=== PATIENT | female | born 1990 | race Hispanic/Latino ===

== ENCOUNTER 2017-09-13 15:55 | Inpatient (IN) | payer MEDICAID ==
[2017-09-13 17:13] LABS: SQUAMOUS EPITHIAL 23 /hpf (0-5); URINE BACTERIA OCC (<OCC); URINE BILIRUBIN NEGATIVE (NEGATIVE); URINE BLOOD NEGATIVE (NEGATIVE); URINE CALCIUM OXALATE CRYSTALS OCC /hpf (<OCC); URINE CLARITY Hazy (Clear); URINE GLUCOSE (UA) NORMAL (Normal); URINE LEUKOCYTE ESTERASE NEG Leu/uL (Negative); URINE NITRATE NEGATIVE (NEGATIVE); URINE PROTEIN 1+ mg/dL (NEGATIVE)
[2017-09-13 17:14] LABS: URINE COLOR YELLOW (YELLOW)
[2017-09-13 17:21] LABS: BENZODIAZEPINES, UR NEGATIVE (NEGATIVE); PHENCYCLIDINE, UR NEGATIVE (NEGATIVE)
[2017-09-13 17:28] LABS: BASO % 0.5 % (0.0-2.0); EOS % 0.4 % (0.0-4.0); HEMOGLOBIN 12.6 g/dL (11.0-16.0); LYMPH # 2.7 K/uL (1.0-4.3); LYMPH % 27.9 % (20.0-40.0); MEAN CELL VOLUME 85.9 fL (81.0-99.0); MEAN CORPUSCULAR HGB CONC 34.9 g/dL (33.0-37.0); MEAN PLATELET VOLUME 8.1 fL (7.2-11.7); MONO # 1.1 K/uL (0.0-0.8); MONO % 11.7 % (0.0-10.0); NEUT # 5.8 K/uL (1.8-7.0); NEUT % 59.5 % (50.0-75.0); RBC 4.21 Mil/uL (3.80-5.20); RED CELL DISTRIBUTION WIDTH 12.8 % (11.5-14.5); WHITE BLOOD COUNT 9.8 K/uL (4.8-10.8)
[2017-09-13 17:28] LABS: BARBITURATES, UR POSITIVE (NEGATIVE); OPIATES, UR POSITIVE (NEGATIVE)
--- NOTE | 2017-09-13 17:38 | C.PDOC ---
History Of Present Illness 26 y/o female presents to ED requesting IV heroin and ETOH detox. Patient state she found out she was 4 days ago. Denies abdominal pain, vaginal bleeding, back pain, n/v or any other complaints at this time. Last use this morning at 5 am. LMP 07/2017 Time Seen by Provider: 09/13/17 16:41 Chief Complaint (Nursing): Substance Abuse History Per: Patient History/Exam Limitations: no limitations Onset/Duration Of Symptoms: Days Current Symptoms Are (Timing): Still Present Suicide/Self Injury Attempted (Context): None Modifying Factor(s): Alcohol Past Medical History Reviewed: Historical Data, Nursing Documentation, Vital Signs Vital Signs: Last Vital Signs Temp 98.3 F 09/13/17 16:02 Pulse 93 H 09/13/17 16:02 Resp 18 09/13/17 16:02 BP 107/78 09/13/17 16:02 Pulse Ox 98 09/13/17 19:01 - Medical History PMH: No Chronic Diseases Surgical History: No Surg Hx Family History: States: No Known Family Hx - Social History Hx Alcohol Use: Yes Hx Substance Use: Yes (heroin) - Immunization History Hx Tetanus Toxoid Vaccination: No Hx Influenza Vaccination: No Hx Pneumococcal Vaccination: No Review Of Systems Constitutional: Negative for: Fever, Chills Gastrointestinal: Negative for: Vomiting, Abdominal Pain Genitourinary: Negative for: Vaginal Bleeding Musculoskeletal: Negative for: Back Pain Skin: Negative for: Rash Physical Exam - Physical Exam Appears: Non-toxic, No Acute Distress Skin: Warm, Dry, No Rash, Other ((+) b/l track moore) Head: Atraumatic, Normacephalic Eye(s): bilateral: Normal Inspection, EOMI Nose: Normal Oral Mucosa: Moist Neck: Normal ROM, Supple Chest: Symmetrical Cardiovascular: Rhythm Regular Respiratory: Normal Breath Sounds, No Accessory Muscle Use, No Rales, No Rhonchi , No Wheezing Gastrointestinal/Abdominal: Soft, No Tenderness, No Guarding, No Rebound Extremity: Normal ROM, No Deformity Extremity: Bilateral: Normal ROM Neurological/Psych: Oriented x3, Normal Motor, Normal Sensation ED Course And Treatment - Laboratory Results Result Diagrams: 09/13/17 17:23 09/13/17 17:23 O2 Sat by Pulse Oximetry: 98 (RA) Pulse Ox Interpretation: Normal Progress Note: Ultrasound Abdomen Transvaginal ordered, Beta HCG ordered. Case endorsed to Dr Del Angel pending dispo. Disposition - Disposition Disposition Time: 19:00 Condition: STABLE Forms: [facility] (Monegasque) - Clinical Impression Clinical Impression: , Alcohol dependence, Opioid dependence - PA / GLASS BENDER / Resident Statement MD/DO has reviewed & agrees with the documentation as recorded. - Scribe Statement The provider has reviewed the documentation as recorded by the Gingeribwill Mckeon All medical record entries made by the Sushil were at my direction and personally dictated by me. I have reviewed the chart and agree that the record accurately reflects my personal performance of the history, physical exam, medical decision making, and the department course for this patient. I have also personally directed, reviewed, and agree with the discharge instructions and disposition.
[2017-09-13 17:46] LABS: ALB/GLOB RATIO 1.2 (1.0-2.1); ALBUMIN 4.1 g/dL (3.5-5.0); ALT/SGPT 25 U/L (9-52); AST/SGOT 36 U/L (14-36); BLOOD UREA NITROGEN 5 mg/dL (7-17); CALCIUM 8.8 mg/dl (8.6-10.4); GFR AFRICAN-AMERICAN > 60; GFR NON-AFRICAN AMERICAN > 60
--- NOTE | 2017-09-13 18:36 | US ---
Indication: Pain Comparison: None available Technique: Real-time transabdominal pelvic ultrasound was performed. In addition a transvaginal pelvic ultrasound was necessary to better depict pelvic anatomy. Findings: Uterus measures approximately 9.4 x 5.2 x 6.5 cm. Anteverted. Cervix length measures approximately 3.1 cm. There is a single intrauterine fetus present. 2 mm yolk sac. The gestational sac measures 1.7 cm and is compatible with a gestational age of 6 weeks 0 days. The crown-rump length measures 0.4 cm and is compatible with a gestational age of 6 weeks 0 days. There is heart motion which measured 115 BPM. The right ovary measures 3.2 x 2.0 x 2.4 cm. The left ovary measures 2.6 x 1.5 x 2.4 cm. Blood flow was demonstrated to both ovaries. Impression: Live single intrauterine with estimated gestational age 6 weeks 0 days. heart rate 115 bpm. Advise an anomaly screen at 16-18 weeks gestational age.
[2017-09-14] MEDS: Multiple Vitamins Tab PO SCH (09:10)
[2017-09-14] MEDS ORDERED: Aluminum Hydroxide/Magnesium Hydroxide Susp (30 mL) PO PRN (11:09)
[2017-09-14] MEDS ORDERED: Aluminum Hydroxide/Magnesium Hydroxide Susp (30 mL) PO SCH (12:00)
--- NOTE | 2017-09-14 14:53 | PCM.PSYCH ---
Initial Psychiatric Evaluation - Initial Psychiatric Evaluation Type of Admission: Voluntary Legal Status: Capacity Chief Complaint (in patient's own words): "Heroin" History of Present Illness and Precipitating Events: Patient is a 26 year old female who was admitted for opioid detox. She is , unemployed, and currently lives with her . She has two daughters who were taken by the state July 23, 2017. They currently reside in foster care and she does not have custody of them due to her problems with addiction. She is currently 6 weeks and plans to keep the child. She states she went to [facility] on 09/10/16 for detox and found out she was . She was then referred here for detox. She has a 6 year history of heroin use. Her longest time span of sobriety was 1 1/2 years. She use 10-12 bags IV daily. She states she is currently having withdrawal symptoms. She states she also drinks 1 pint of alcohol daily. She denies any past history of DT's or seizures. Currently she is experiencing very mild alcohol withdrawal. She states she smokes 2 packs daily. She reports having been to detox 3x in the past and rehab once. Her plan after detox is to enter into either rehab or a methadone clinic and to stay clean for the baby. Past psych hx: She reports having a history of depression, anxiety, and bipolar disorder. She was never hospitalized for any psychiatric condition. Family psych hx: She states her grandmother suffers from depression and her mother suffers from anxiety. PMH: Hep C, Depression, Anxiety, Bipolar Current Medications: Active Medications Generic Name Dose Route Start Last Admin Trade Name Toñitoq PRN Reason Stop Dose Admin Acetaminophen 650 mg 09/13/17 23:37 Tylenol 325mg Tab PO Q4H PRN Pain, Mild (1-3) Al Hydrox/Mg Hydrox/Simethicone 30 ml 09/14/17 11:09 Maalox 30 Ml PO Q6 PRN Indigestion / Heartburn Diphenhydramine HCl 25 mg 09/13/17 23:39 Benadryl PO Q6 PRN Agitation Methadone HCl 15 mg 09/14/17 10:00 09/14/17 09:10 Methadone PO 09/18/17 09:59 15 mg DAILY DONNA Administration Taper Multivitamins 1 tab 09/14/17 10:00 09/14/17 09:10 Hexavitamin PO 1 tab DAILY DONNA Administration Nicotine 1 patch 09/14/17 10:15 09/14/17 11:08 Nicoderm Cq TD 1 patch DAILY DONNA Administration Past Psychiatric History - Past Psychiatric History Previous Treatment History: None Pertinent Medical Hx (Current Medical&Sleep Prob, Allergies): Allergies Allergy/AdvReac Type Severity Reaction Status Date / Time seafood Allergy Uncoded 09/13/17 16:07 No Known Home Med 09/13/17 Review of Systems - Review of Systems All systems: reviewed and no additional remarkable complaints except - Constitutional Constitutional: Chills, Sweats - Musculoskeletal Musculoskeletal: Muscle Cramps, Myalgias - Neurological Neurological: Tremor - Psychiatric Psychiatric: Abnormal Sleep Pattern, Anxiety, Irritability, Mood Swings. absent : Hallucinations, Homicidal Ideation, Suicidal Ideation Mental Status Examination - Personal Presentation Personal Presentation: Looks stated age - Affect Affect: Constricted - Motor Activity Motor Activity: Calm - Reliability in Providing Information Reliability in Providing Information: Good - Speech Speech: Organized - Mood Mood: Anxious - Formal Thought Process Formal Thought Process: No Impairment - Cognitive Functions Orientation: Person, Place, Situation, Time Sensorium: Alert Attention/Concentration: Attentive Abstract Thinking: [place] Judgement: Intact, as evidence by: Insight regarding need for hospitalization Memory: Recent intact, as evidence by: Ability to recall events of the day, Remote intact, as evidenced by: Abilit to recall sig. life events - Risk Risk: Withdrawal, Diminished functioning - Strength & Assets Inventory Strength & Assets Inventory: Cooperative DSM 5 DX - DSM 5 DSM 5 Diagnosis: Opioid withdrawal Opioid use d/o - severe Alcohol use d/o - severe Anxiety d/o -unspecified - Recommended/Plan of Treatment Treatment Recommendations and Plan of Treatment: Patient was started on Methadone detox Symptom-induced alcohol detox As needed medications Attend groups and activities Supportive therapy and psychoeducation MA for abstinence CBT for relapse prevention Encourage MAT Refer to rehab or IOP Attend self-help groups as well 36mins Projected ELOS: 4-5 days Prognosis: good w treatment - Smoking Cessation Smoking Cessation Initiated: Yes
[2017-09-14 15:42] LABS: SQUAMOUS EPITHIAL 25 /hpf (0-5); URINE BACTERIA RARE (<OCC); URINE BILIRUBIN NEGATIVE (NEGATIVE); URINE BLOOD NEGATIVE (NEGATIVE); URINE CLARITY Hazy (Clear); URINE COLOR Yellow (YELLOW); URINE GLUCOSE (UA) NORMAL (Normal); URINE LEUKOCYTE ESTERASE 1+ Leu/uL (Negative); URINE NITRATE NEGATIVE (NEGATIVE); URINE PROTEIN NEGATIVE (NEGATIVE); URINE UROBILINOGEN NORMAL mg/dL (0.2-1.0)
--- NOTE | 2017-09-14 21:30 | PCM.BM ---
<Lula Ferrari Viridiana - Last Filed: 09/14/17 21:28> Treatment Plan Problems - Problems identified on initial assessmt Opiate Dependence Date Initiated: 09/14/17 Time Initiated: 04:45 Assessment reference: NA Status: Active ETOH Dependence Date Initiated: 09/14/17 Time Initiated: 04:45 Assessment reference: NA Status: Active Treatment assets and liabiliti Patient Assests: ADL independent Patient Liabilities: substance abuse - Milieu Protocol Maintain good personal hygiene: daily Encourage regular showers, daily Remind patient to perform daily oral care, daily Assist patient to perform ADL's Maintain personal safety: every shift Educate patient to report safety concerns to staff, every shift Monitor environment for contraband/sharps Medication safety: Monitor for expected outcome, potential side effects: every shift, Assess barriers to learning: every shift, Assess readiness for medication education: every shift Milieu Narrative: Subutex detox Patient was started on Methadon 15mg Q24, Multivitamins 1 tab daily, Nicotine patch 21mg patch daily. As needed medications Gabapentin for augmentation Attend groups and activities Supportive therapy and psychoeducation [place] for abstinence CBT for relapse prevention Encourage MAT Refer to rehab or IOP Attend self-help groups as well 36mins Discharge/Continuing Care - Treatment Team Participation Patient/Family/SO Statement: Subutex detox Patient was started on Methadon 15mg Q24, Multivitamins 1 tab daily, Nicotine patch 21mg patch daily. As needed medications Gabapentin for augmentation Attend groups and activities Supportive therapy and psychoeducation [place] for abstinence CBT for relapse prevention Encourage MAT Refer to rehab or IOP Attend self-help groups as well 36mins <Sanaz Watts - Last Filed: 09/17/17 08:47> - Diagnosis (1) Alcohol dependence Status: Acute Interventions: 09/17/17 08:47 * Assess 7x/week regarding severity of withdrawal * Educate regarding risks, benefits, side effects and alternatives of medications * Use Motivational Interviewing for abstinence * Use CBT for relapse prevention * Medication management for withdrawal symptoms * Encourage medication assisted treatment * (2) Opioid dependence Status: Acute Interventions: 09/17/17 08:47 * Assess 7x/week regarding severity of withdrawal * Educate regarding risks, benefits, side effects and alternatives of medications * Use Motivational Interviewing for abstinence * Use CBT for relapse prevention * Medication management for withdrawal symptoms * Encourage medication assisted treatment *
[2017-09-15] MEDS: Multiple Vitamins Tab PO SCH (09:26)
--- NOTE | 2017-09-15 13:06 | PCM.PYCHPN ---
Psychiatric Progress Note - Psychiatric Progress Note Patient seen today, length of contact: 16 mins Patient Chief Complaint: "Heroin" Problems Identified/Issues Discussed: The pt is seen, chart reviewed, case discussed with staff. Patient stated she is extremely irritable, not sleeping, and wants to go home. She states she does not think the medication is working. Spoke with her and told her to give it a few days for things to clam down. Also stated she has librium PRN and expressed for her only to take this if absolutely necessary as she is 6 weeks . The pt is compliant with medications and reports no side-effects. Symptoms are improving but needs more time to stabilize. After care discussed, support and psychoeducation given. Medication Change: Yes Medical Record Reviewed: Yes Mental Status Examination - Cognitive Function Orientation: Person, Place, Situation, Time Memory: Intact Attention: WNL Concentration: WNL Association: WNL Fund of Knowledge: WNL - Mood Mood: Anxious - Affect Affect: Constricted - Speech Speech: Soft - Formal Thought Process Formal Thought Process: No Impairment - Suicidal Ideation Suicidal Ideation: No - Homicidal Ideation Homicidal Ideation: No Goal/Treatment Plan - Goal/Treatment Plan Need for Continued Stay: Discharge may exacerbated symptoms Progress Toward Problem(s) and Goals/Treatment Plan: Patient was started on Methadone detox Symptom-induced alcohol detox As needed medications Attend groups and activities Supportive therapy and psychoeducation [place] for abstinence CBT for relapse prevention Encourage MAT Refer to rehab or IOP Attend self-help groups as well - Smoking Cessation Smoking Cessation Initiated: Yes
[2017-09-15 22:03] VITALS: RESP 18
[2017-09-16] MEDS: Multiple Vitamins Tab PO SCH (09:29)
--- NOTE | 2017-09-16 14:10 | PCM.PYCHPN ---
Psychiatric Progress Note - Psychiatric Progress Note Patient seen today, length of contact: 16 mins Patient Chief Complaint: "I am feeling much better than yesterday " Problems Identified/Issues Discussed: The pt is seen, chart reviewed, case discussed with staff. Patient state she feels much better after yesterday's dose of librium. She states she was able to sleep and is less irritable. She will be discharged tomorrow(09/17) at 7am and has an appointment at a methadone clinic at 8am. The pt is compliant with medications and reports no side-effects. Symptoms are improving but needs more time to stabilize. After care discussed, support and psychoeducation given. Medication Change: Yes Medical Record Reviewed: Yes Mental Status Examination - Cognitive Function Orientation: Person, Place, Situation, Time Memory: Intact Attention: WNL Concentration: WNL Association: WNL Fund of Knowledge: WNL - Mood Mood: Anxious - Affect Affect: Constricted - Speech Speech: Soft - Formal Thought Process Formal Thought Process: No Impairment - Suicidal Ideation Suicidal Ideation: No - Homicidal Ideation Homicidal Ideation: No Goal/Treatment Plan - Goal/Treatment Plan Need for Continued Stay: Discharge may exacerbated symptoms Progress Toward Problem(s) and Goals/Treatment Plan: Patient was started on Methadone detox Librium PRN added for alcohol detox As needed medications Attend groups and activities Supportive therapy and psychoeducation [place] for abstinence CBT for relapse prevention Encourage MAT Refer to rehab or IOP Attend self-help groups as well
[2017-09-16 14:24] VITALS: O2SAT 99
[2017-09-17 06:06] VITALS: TEMP 97.3
[2017-09-17] MEDS ORDERED: Influenza Vaccine 60 mcg/0.5 mL SYR (4YR UP) IM ONE (06:12)
[2017-09-17 06:46] VITALS: BP 115/80; PULSE 90
--- NOTE | 2017-09-17 08:46 | PCM.PYCHDC ---
Mental Status Examination - Mental Status Examination Orientation: Person Discharge Summary - Discharge Note Consultations:: List each consultation separately and include: 1. Reason for request. 2. Findings. 3. Follow-up Summary of Hospital Course include:: 1. Description of specific treatment plan utilized for patients during their course of treatmen. 2. Summarize the time- course for resolution of acute symptoms and/or regressed behaviors. 3. Describe issues identified and worked on during hospitalization. 4. Describe medication utilized. 5. Describe medical problems identified and treated. 6. Reassessment of suicide risk Summary of Hospital Course: Patient is a 26 year old female who was admitted for opioid detox. She is , unemployed, and currently lives with her . She has two daughters who were taken by the state July 23, 2017. They currently reside in foster care and she does not have custody of them due to her problems with addiction. She is currently 6 weeks and plans to keep the child. She states she went to [facility] on 09/10/16 for detox and found out she was . She was then referred here for detox. She has a 6 year history of heroin use. Her longest time span of sobriety was 1 1/2 years. She use 10-12 bags IV daily. She states she is currently having withdrawal symptoms. She states she also drinks 1 pint of alcohol daily. She denies any past history of DT's or seizures. Currently she is experiencing very mild alcohol withdrawal. She states she smokes 2 packs daily. She reports having been to detox 3x in the past and rehab once. Her plan after detox is to enter into either rehab or a methadone clinic and to stay clean for the baby. Past psych hx: She reports having a history of depression, anxiety, and bipolar disorder. She was never hospitalized for any psychiatric condition. Family psych hx: She states her grandmother suffers from depression and her mother suffers from anxiety. PMH: Hep C, Depression, Anxiety, Bipolar - Final Diagnosis (DSM 5) Condition upon Discharge: STABLE Disposition: HOME/ ROUTINE Follow-up Treatment Plan: Patient was started on Methadone detox Librium PRN added for alcohol detox As needed medications Attend groups and activities Supportive therapy and psychoeducation MA for abstinence CBT for relapse prevention Encourage MAT Refer to rehab or IOP Attend self-help groups as well
== END 2017-09-17 07:26 | disposition home or self-care (01) | DRG 886 ==
LOC: C.ER 15:55 → C.7D 20:06
PROVIDERS: ADMIT Psychiatry & Neurology Psychiatry; ATTEND Psychiatry & Neurology Psychiatry
DX: O99.321 Drug use complicating pregnancy, first trimester (principal); F10.239 Alcohol dependence with withdrawal, unspecified; F11.23 Opioid dependence with withdrawal; Z3A.01 Less than 8 weeks gestation of pregnancy; F41.9 Anxiety disorder, unspecified; F32.9 Major depressive disorder, single episode, unspecified